=== PATIENT | male | born 1970 | race Caucasian/White ===

== ENCOUNTER 2019-05-17 18:14 | Emergency (ER) | payer SELFPAY ==
[2019-05-17 18:29] VITALS: BP 128/89
--- NOTE | 2019-05-17 18:39 | ED Physician Documentation ---
Wound Recheck - HISTORIAN Historian: patient - HPI Stated Complaint: wound check Chief Complaint: Wound Recheck Additional Information: Patient presents to ED with concerns of bleeding from external fixator site. Patient states the external fixator was placed 2 days ago at [facility]. He is concerned and wanted someone to look at it. Patient has not call his Orthopedic surgeon. Symptoms Since Procedure: other (bloody drainage) - ROS NEURO: denies: headache CONST: no problems EYES/ENT: none CVS/RESP: none MS/SKIN/LYMPH: denies: rash GI/: denies: vomiting, nausea - PAST HX Past History: none Allergies/Adverse Reactions: Allergies Allergy/AdvReac Type Severity Reaction Status Date / Time naproxen Allergy GI Verified 05/17/19 18:25 Upset/vomiting Home Medications: Ambulatory Orders Medication Instructions Recorded Cyclobenzaprine HCl [Flexeril] 1 tab PO HS 05/17/19 Oxycodone HCl/Acetaminophen 1 tab PO BID 05/17/19 [Oxycodon-Acetaminophen 7.5-325] - SOCIAL HX Smoking History: cigarettes Alcohol Use: none Drug Use: none - FAMILY HX Family History: none - VITAL SIGNS Vital Signs: Vital Signs Temp Pulse Resp BP Pulse Ox 97.7 F 97 H 22 128/89 98 05/17/19 18:22 05/17/19 18:22 05/17/19 18:22 05/17/19 18:22 05/17/19 18:22 - REVIEWED ASSESSMENTS Nursing Assessment Reviewed: Yes Vitals Reviewed: Yes Physical Exam - Physical Exam General Appearance: no apparent distress Eye Exam: bilateral eye: normal inspection, PERRL, EOMI Ears, Nose, Throat: normal ENT inspection Neck Exam: non-tender Respiratory: chest non-tender, lungs clear Gastrointestinal/Abdominal: normal bowel sounds, soft Back Exam: normal inspection Extremity: normal range of motion, no pedal edema, normal capillary refill, other (right lower leg with external fixator at ankle and proximal tibia. There is blood drainage at the lateral ankle pin. Sensation is intact in all 5 toes) Neurologic: alert, normal mood/affect, oriented x 3 Skin Exam: normal color, warm/dry Discharge Clincal Impression: Encounter for wound re-check Referrals: Primary Doctor,No [Primary Care Provider] - 2 Days Additional Instructions: 1. Call your Orthopedic surgeon as soon as possible 2. Take oxycodone and flexeril as prescribed by Orthopedic surgeon 3. Follow up with PCP within 3 days 4. Return to ER for new or worsening symptoms Condition: Stable Disposition: 01 HOME, SELF-CARE Decision to Admit: NO Date of Decison to Admit: 05/17/19 Decision Time: 18:44
== END 2019-05-17 18:51 | disposition home or self-care (01) ==
LOC: ED 18:14
DX: Z48.00 Encounter for change or removal of nonsurgical wound dressing (principal)
CPT/HCPCS: 99282